=== PATIENT | male | born 1950 | race Caucasian/White ===

== ENCOUNTER 2016-04-15 11:30 | Emergency (ER) | payer SELFPAY ==
[2016-04-15 12:00] VITALS: BP 123/88
--- NOTE | 2016-04-15 12:17 | Emergency Department Report ---
Chief Complaint: Abdominal Pain Stated Complaint: ELEVATED BP/ABD PAIN Time Seen by Provider: 04/15/16 12:13 - HPI History of Present Illness: Patient here complaining of abdominal pain 2 years. He states that his pain is on and off. She reports that he has not been to the bathroom in 2 days and he is having gas. Denies any nausea vomiting. Denies any fever or chills. Patient said he had a CAT scan and colonoscopy and endoscopic then he is not having any relief. He is also complaining that his blood pressure is elevated sometimes but it's normal today. Pain is 8 out of 10 and is on and off. He said the pain is achy. - ROS Review of Systems: All systems are negative unless stated in HPI above - Exam Vital Signs: Vital Signs 04/15/16 11:56 Temperature 98.0 F Pulse Rate 88 Respiratory 15 Rate Blood Pressure 123/88 O2 Sat by Pulse 99 Oximetry Physical Exam: Gen: This is a 61-year-old male well-nourished well-developed in no acute distress. He is nontoxic in appearance. Abdomen: Negative rigidity, nontender to palpate in all quadrants. No guarding or rebound said tenderness. Normal bowel sounds in all quadrant. No CVA tenderness. CV: S1, S2. Regular rate and rhythm. MSE screening note: Focused history and physical exam performed. Due to findings the following was ordered:see mdm ED Medical Decision Making - Medical Decision Making Medical decision making: Patient seen by provider in triage area. Appropriate protocol activated and patient to main ED to be seen by physician. ED Disposition for MSE Condition: Stable
== END 2016-04-15 12:14 | disposition left against medical advice (07) ==
LOC: ED 11:30
DX: R10.9 Unspecified abdominal pain (principal); I10 Essential (primary) hypertension; Z53.21 Procedure and treatment not carried out due to patient leaving prior to being seen by health care provider